=== PATIENT | male | born 1995 | race Caucasian/White ===

== ENCOUNTER 2018-12-01 18:50 | Emergency (ER) | payer MEDICAID, OTHER ==
[2018-12-01] MEDS ORDERED: Bacitracin Oint 1 GM U/D Packet TOP ONE (19:06)
[2018-12-01] MEDS ORDERED: Lidocaine 1% PF 2 ML SDV INJECT ONE (19:06)
[2018-12-01] MEDS ORDERED: Diphtheria,Pertussis(Acell),Tetanus Vaccine 0.5 ML Syringe IM ONE (19:06)
--- NOTE | 2018-12-01 19:06 | EDM.PDOC ---
ED HPI GENERAL MEDICAL PROBLEM - General Chief Complaint: Laceration Stated Complaint: CUT FINGER ON LT HAND Time Seen by Provider: 12/01/18 19:04 Source of Information: Reports: Patient History Limitations: Reports: No Limitations - History of Present Illness INITIAL COMMENTS - FREE TEXT/NARRATIVE: HISTORY AND PHYSICAL: History of present illness: Patient is a 23-year-old male who presents to the emergency room with a laceration to his left distal third digit after cutting fruit. He states his tetanus is up-to-date. He offers no other concerns or complaints at this time. Review of systems: As per history of present illness and below otherwise all systems reviewed and negative. Past medical history: As per history of present illness and as reviewed below otherwise noncontributory. Surgical history: As per history of present illness and as reviewed below otherwise noncontributory. Social history: See social history for further information Family history: As per history of present illness and as reviewed below otherwise noncontributory. Physical exam: General: Well-developed and well-nourished 23-year-old male. Alert and oriented. Nontoxic appearing and in no acute distress. HEENT: Atraumatic, normocephalic, pupils equal and reactive bilaterally, negative for conjunctival pallor or scleral icterus, mucous membranes moist, trachea midline. No drooling or trismus noted. No meningeal signs. No hot potato voice noted. Skin: 1.5 cm to the left distal third digit, palmar surface. This does not involve the nailbed. Intact, warm, dry. No lesions or rashes noted. Extremities: Atraumatic, moves all extremities per self without difficulty or deficits, negative for cords or calf pain. Neurovascular unremarkable. Neuro: Awake, alert, oriented. Cranial nerves II through XII unremarkable. Cerebellum unremarkable. Motor and sensory unremarkable throughout. Exam nonfocal. Notes: Chlorhexidine and wound wash was used to cleanse the area thoroughly. 1% lidocaine was used to anesthetize the area. Usual and customary procedures were followed for suture placement. 4-0 nylon, #3 interrupted sutures placed. Patient tolerated well. Bacitracin nonstick dressing applied. Supportive care measures were reviewed and discussed. Voices understanding and is agreeable to plan of care. Denies any further questions or concerns at this time. Diagnostics: None Therapeutics: 1% lidocaine, bacitracin nonstick dressing Prescription: None Impression: Laceration Plan: 1. Keep the area clean and dry. Continue to monitor for signs of infection. Sutures to be removed in 7-10 days. 2. Tylenol and/or ibuprofen as needed for pain management. 3. Please follow-up with your primary care provider in the next 1-2 days. Return to the ED as needed and as discussed. Definitive disposition and diagnosis as appropriate pending reevaluation and review of above. - Related Data Allergies Allergy/AdvReac Type Severity Reaction Status Date / Time No Known Allergies Allergy Verified 12/01/18 19:13 Home Meds: Home Meds . [No Known Home Meds] 12/01/18 [History] ED ROS GENERAL - Review of Systems Review Of Systems: ROS reveals no pertinent complaints other than HPI. ED EXAM, SKIN/RASH Exam: See Below (See dictation) ED SKIN PROCEDURES - Laceration/Wound Repair left 3rd digit Lac/Wound length In cm: 1.5 Appearance: Subcutaneous, Linear Distal NVT: Neuro & Vascular Intact, No Tendon Injury Anesthetic Type: Local Local Anesthesia - Lidocaine (Xylocaine): 1% Plain Local Anesthetic Volume: 1cc Skin Prep: Chlorhexidine (Hibiciens) Saline Irrigation (cc's): 25 Exploration/Debridement/Repair: Wound Explored, In a Bloodless Field, No Foreign Material Found Closed with: Sutures Suture Size: 4-0 # of Sutures: 3 Suture Type: Nylon Drain Placement: No Sterile Dressing Applied: Provider Tetanus Status Addressed: Yes Complications: No Course - Vital Signs Last Recorded V/S: Last Vital Signs Temp 96.8 F 12/01/18 19:03 Pulse 78 12/01/18 19:03 Resp 17 12/01/18 19:03 BP 134/65 12/01/18 19:03 Pulse Ox 98 12/01/18 19:03 - Orders/Labs/Meds Orders: Active Orders 24 hr Category Date Time Status Vaccines to be Administered [RC] PER UNIT ROUTINE Care 12/01/18 19:06 Ordered Meds: Medications Discontinued Medications Generic Name Dose Route Start Last Admin Trade Name Freq PRN Reason Stop Dose Admin Bacitracin 1 dose 12/01/18 19:06 Bacitracin Oint 1 Gm TOP 12/01/18 19:07 ONETIME ONE Diphtheria/Tetanus/Acell Pertussis 0.5 ml 12/01/18 19:06 Adacel IM 07/21/19 19:07 .ONCE ONE Lidocaine HCl 2 ml 12/01/18 19:06 Xylocaine-Mpf 1% INJECT 12/01/18 19:07 ONETIME ONE Departure - Departure Time of Disposition: 19:22 Disposition: Home, Self-Care 01 Clinical Impression: Laceration - Discharge Information Instructions: Laceration Care, Adult, [id number] Referrals: PCP,None [Primary Care Provider] - Forms: ED Department Discharge Additional Instructions: The following information is given to patients seen in the emergency department who are being discharged to home. This information is to outline your options for follow-up care. We provide all patients seen in our emergency department with a follow-up referral. The need for follow-up, as well as the timing and circumstances, are variable depending upon the specifics of your emergency department visit. If you don't have a primary care physician on staff, we will provide you with a referral. We always advise you to contact your personal physician following an emergency department visit to inform them of the circumstance of the visit and for follow-up with them and/or the need for any referrals to a consulting specialist. The emergency department will also refer you to a specialist when appropriate. This referral assures that you have the opportunity for follow-up care with a specialist. All of these measure are taken in an effort to provide you with optimal care, which includes your follow-up. Under all circumstances we always encourage you to contact your private physician who remains a resource for coordinating your care. When calling for follow-up care, please make the office aware that this follow-up is from your recent emergency room visit. If for any reason you are refused follow-up, please contact the [facility] Emergency Department at and asked to speak to the emergency department charge nurse. [facility] [address] [place] [address] [id number] [facility] [address] [place] [id number] 1. Keep the area clean and dry. Continue to monitor for signs of infection. Sutures to be removed in 7-10 days. 2. Tylenol and/or ibuprofen as needed for pain management. 3. Please follow-up with your primary care provider in the next 1-2 days. Return to the ED as needed and as discussed. - My Orders Last 24 Hours: My Active Orders 12/01/18 19:06 Vaccines to be Administered [RC] PER UNIT ROUTINE - Assessment/Plan Last 24 Hours: My Active Orders 12/01/18 19:06 Vaccines to be Administered [RC] PER UNIT ROUTINE
== END 2018-12-01 19:34 | disposition home or self-care (01) ==
LOC: MW.ED 18:50
DX: S61.213A Laceration without foreign body of left middle finger without damage to nail, initial encounter (principal); W45.8XXA Other foreign body or object entering through skin, initial encounter
CPT/HCPCS: 12001; 99282; J2001